=== PATIENT | female | born 1995 | race Caucasian/White ===

== ENCOUNTER 2016-11-18 12:44 | Emergency (ER) | payer SELFPAY ==
[2016-11-18] MEDS ORDERED: CEFTRIAXONE SODIUM 1 G VIAL ONE (13:36)
[2016-11-18] MEDS ORDERED: AZITHROMYCIN 250 MG TABLET ONE (13:36)
[2016-11-18 13:49] LABS: HCG,QUALITATIVE URINE NEGATIVE
[2016-11-18 13:52] LABS: PH,URINE 6.5 (5.0-8.0); SPECIFIC GRAVITY 1.015 (1.001-1.030); URINE BILIRUBIN NEGATIVE (NEGATIVE); URINE BLOOD 2+ (NEGATIVE); URINE GLUCOSE (UA) NEGATIVE (NEGATIVE); URINE LEUKOCYTE ESTERASE 1+ (NEGATIVE); URINE NITRITE NEGATIVE (NEGATIVE); URINE PROTEIN TRACE (NEGATIVE); URINE UROBILINOGEN NORMAL (0-1 mg/dl)
[2016-11-18 13:55] LABS: URINE APPEARANCE HAZY; URINE COLOR YELLOW
[2016-11-18 14:03] LABS: URINE BACTERIA 2+; URINE WBC 25-30 /hpf
[2016-11-18 14:04] LABS: URINE MUCUS 2+
[2016-11-19 14:08] LABS: CHLAMYDIA BD Negative (Negative); N.GONORRHOEAE BD Negative (Negative); SOURCE Urine (())
== END 2016-11-18 14:19 | disposition home or self-care (01) ==
LOC: ED 12:44
DX: R10.2 Pelvic and perineal pain (principal); N89.8 Other specified noninflammatory disorders of vagina
CPT/HCPCS: 87491; 87591; 81025; 81001; 99283 ×2; 96372; J0696; A9270